=== PATIENT | male | born 1930 | race African-American/Black ===

== ENCOUNTER 2019-12-08 13:21 | Inpatient (IN) | payer BC, MEDICAID ==
[~2019-12-08] VITALS: Ht 177.8 cm; Wt 69.0 kg
[~2019-12-08 13:21] MED LIST: ASPI-1497 PO; CLOP75TA4 PO; NIFE10CA PO
[2019-12-08] MEDS ORDERED: CLONIDINE 0.2MG TABLET PO ONE (15:00)
[2019-12-08 15:32] LABS: BASOPHILS % 0.8 % (0.0-2.0); EOSINOPHILS % 1.9 % (0.0-5.0); HEMATOCRIT. 38.5 % (42.0-52.0); LYMPHOCYTES % 30.7 % (20.0-50.0); MEAN CORPUSCULAR HEMOGLOBIN 30.8 pg (28.0-32.0); MEAN CORPUSCULAR VOLUME 91.5 fL (80.0-94.0); MEAN PLATELET VOLUME 9.9 fl (7.4-10.4); MONOCYTES % 9.2 % (2.0-8.0); NEUTROPHILS % 57.4 % (40.0-76.0); PLATELET 172 x1000/uL (130-400); RED BLOOD CELL COUNT 4.21 mill/uL (4.7-6.1); RED CELL DISTRIBUTION WIDTH 13.8 % (11.6-14.6)
[2019-12-08 15:34] LABS: CHLORIDE 110 mEq/L (98-107)
[2019-12-08 15:38] LABS: INR 1.1; PARTIAL THROMBOPLASTIN TIME 27.2 sec (23.4-31.0)
[2019-12-08 15:39] LABS: ETHANOL BLOOD < 10 mg/dL
[2019-12-08 16:43] LABS: *AMPHETAMINES SCREEN URINE NEGATIVE (NEGATIVE); *BARBITURATES SCREEN URINE NEGATIVE (NEGATIVE); *BENZODIAZEPINES SCREEN URINE NEGATIVE (NEGATIVE)
[2019-12-08 16:45] LABS: *COCAINE SCREEN URINE NEGATIVE (NEGATIVE); CANNABINOID URINE SCREEN NEGATIVE (NEGATIVE); METHADONE URINE SCREEN NEGATIVE (NEGATIVE); OPIATES URINE SCREEN NEGATIVE (NEGATIVE); PHENCYCLIDINE URINE SCREEN NEGATIVE (NEGATIVE)
[2019-12-08] MEDS ORDERED: ASPIRIN 81MG TABLET PO ONE (18:30)
[2019-12-09] VITALS (7 sets, daily range): BP systolic 101–183; BP diastolic 35–77
[2019-12-09] MEDS ORDERED: HYDRALAZINE HCL 50MG TABLET PO NR (00:15)
[2019-12-09] MEDS ORDERED: MULT-1146 PO (02:24)
[2019-12-09] MEDS ORDERED: TAMS-11 PO (02:24)
[2019-12-09] MEDS ORDERED: ACETAMINOPHEN 325MG TABLET PO PRN (02:45)
[2019-12-09 04:47] LABS: CREATINE KINASE 96 IU/L (39-308)
[2019-12-09 04:48] LABS: CREATINE KINASE MB FRACTION < 1.0 ng/mL (0.5-3.6)
[2019-12-09] MEDS ORDERED: NIFEDIPINE XL 60MG TAB PO SCH (05:30)
[2019-12-09] MEDS: HYDRALAZINE HCL 50MG TABLET PO SCH ×2 (05:41→14:00)
[2019-12-09] MEDS ORDERED: HYDRALAZINE HCL 50MG TABLET PO SCH (06:00)
[2019-12-09] MEDS ORDERED: ASPIRIN 81MG EC TABLET PO SCH (09:00)
[2019-12-09] MEDS ORDERED: LOSARTAN POTASSIUM 25 MG TABLET PO SCH (09:00)
[2019-12-09] MEDS ORDERED: ENOXAPARIN 30MG/0.3ML SYR SUBCUT SCH (09:00)
[2019-12-09] MEDS ORDERED: LOSARTAN POTASSIUM 50 MG TABLET PO SCH (21:00)
== END 2019-12-09 19:08 | disposition home or self-care (01) | DRG 304 ==
LOC: ER 13:21 → 6WST 19:32 → EDBEDREQ 19:35 → EDBEDREQTM 19:35 → ENRESERV 23:18
PROVIDERS: ADMIT Internal Medicine; ATTEND Internal Medicine
DX: I16.0 Hypertensive urgency (principal); I50.43 Acute on chronic combined systolic (congestive) and diastolic (congestive) heart failure; E86.0 Dehydration; I11.0 Hypertensive heart disease with heart failure; H40.9 Unspecified glaucoma; Z86.73 Personal history of transient ischemic attack (TIA), and cerebral infarction without residual deficits; Z91.19 Patient's noncompliance with other medical treatment and regimen
CPT/HCPCS: 36415; 71045; 80053; 80305; 80320; 82550; 82553; 83880; 84484; 85025; 93005; 99285; J1650; G0480